=== PATIENT | male | born 1985 | race Caucasian/White ===

== ENCOUNTER 2020-09-22 19:29 | Emergency (ER) | payer BC, SELFPAY ==
--- NOTE | ~2020-09-22 | US_ITS ---
EXAMINATION: US SCROTUM CLINICAL INFORMATION: Right testicular pain. COMPARISON: None TECHNIQUE: A sonogram of the scrotum was performed assessing mcintyre-scale appearance and color Doppler flow. Spectral Doppler analysis of the arterial and venous flow were performed in the testes bilaterally. FINDINGS: RIGHT: Right testicle measures 4.5 x 2.2 x 2.9 cm, volume 15.0 mL. No focal testicular parenchymal lesions are visualized. Spectral Doppler analysis of the arterial and venous flow is normal in the right testis. Right epididymal head is normal in size. No right hydrocele or varicocele is seen. Right epididymal Doppler flow is slightly increased compared with the left, suggesting epididymitis. LEFT: Left testicle measures 4.0 x 2.0 x 3.4 cm, volume 14.6 mL. No focal testicular parenchymal lesions are visualized. Spectral Doppler analysis of the arterial and venous flow is normal in the left testis. Left epididymal head is normal in size. No left hydrocele or varicocele is seen. Left epididymal Doppler flow is normal. US/US scrotum IMPRESSION: Normal-appearing testes. Slight increase in vascularity of the right epididymis compared to the left suggesting the possibility of epididymitis.
[2020-09-22 19:49] VITALS: BP 154/84; PULSE 86; RESP 16; TEMP 36.6; O2SAT 99; BMI 27.3
--- NOTE | 2020-09-22 21:52 | ED.MALEGU ---
HPI - Male Genitourinary General Chief complaint: Urogenital-Male Stated complaint: TESTICLE SWELLING Time Seen by Provider: 09/22/20 21:52 Source: patient Mode of arrival: ambulatory Limitations: no limitations History of Present Illness HPI Narrative: Patient no significant past medical history complaining of pain in the right testicle since yesterday especially on standing with slight swelling no injuries no urinary symptoms no history of STDs in the past no high risk of STDs MD Complaint: testicle pain Onset (ago): day(s) (2) Related Data Previous Rx's Medication Instructions Recorded ciprofloxacin HCl [Cipro] 500 mg PO BID #20 tab 09/22/20 doxycycline hyclate 100 mg PO BID #20 cap 09/22/20 Allergies Allergy/AdvReac Type Severity Reaction Status Date / Time No Known Allergies Allergy Verified 09/22/20 19:51 Review of Systems Review of Systems: Constitutional : No Weight loss, No Fever, No Chills ENT/Mouth : No sore throat, No Rhinorrhea Eyes: No Eye Pain, No Swelling Cardiovascular : No Chest Pain, no palpitations Respiratory : No Cough, No Sputum, no shortness of breath Gastrointestinal : no Nausea, No Vomiting, No Diarrhea, No abdominal Pain, no black stools Genitourinary : No Dysuria, No Urinary Frequency Musculoskeletal : No joint pain, No Myalgias, No Joint Swelling Skin : No Skin Lesions, No rash Neuro : No Weakness, No Numbness, No Dizziness, No Headache Psych : No Anxiety/Panic, No Depression Heme/Lymph: No Bruising, No Lymphadenopathy Endocrine : No Polyuria, No Polydipsia All other systems reviewed and are negative PMFSH Past Medical History Medical History Patient denies significant medical history Social History Social History Smoked in Last 30 Days: No Use of substances other than those prescribed or required for medical reasons: No Substance Use Type: Marijuana Advance Directives: No Advance Directives Information Provided: Yes Physical Exam Vital Signs: Vital Signs: Last Vital Signs Temp 97.9 F 09/22/20 19:49 Pulse 86 09/22/20 19:49 Resp 16 09/22/20 19:49 BP 154/84 H 09/22/20 19:49 Pulse Ox 99 09/22/20 19:49 Body Mass Index 27.3 Const: General: comfortable and no acute distress HENMT: Head: Yes normocephalic and Yes atraumatic Eyes: General: appearance normal, both eyes and all related structures Resp: Effort & Inspection: normal respiratory effort Auscultation: clear to auscultation bilaterally Cardio: Rate: regular rate Rhythm: regular rhythm Heart sounds: S1 normal heart sound present and S2 normal heart sound present GI: Inspection: Yes normal to inspection Palpation (GI): Soft to palpation and nontender Auscultation: normal bowel sounds : General: Yes no CVA tenderness Male General Exam: Yes normal external exam Penis: normal penis Scrotum: scrotum normal, testes descended bilaterally, no hydroceles, no inguinal hernias and no masses Testes: epididymal tenderness on the right, no testicular mass, no testicular swelling, no testicular tenderness and normal testicular lie Back/Spine/Pelvis: Back: no CVA tenderness MDM - Male Genitourinary MDM Narrative Medical decision making narrative: Patient clinically with right epididymitis early stage ultrasound confirms that will treat him with doxycycline and Levaquin patient low risk for STDs urine is tested for STDs Discharge Plan Discharge Clinical Impression: Epididymitis Patient Disposition: Home, Self-Care Instructions: Epididymitis (ED) Additional Instructions: Care as Advised take antibiotics as prescribed Prescriptions: New doxycycline hyclate 100 mg capsule 100 mg PO BID Qty: 20 RF: 0 ciprofloxacin HCl [Cipro] 500 mg tablet 500 mg PO BID Qty: 20 RF: 0 Interventions: ED Discharge Assessment Last Done: 09/22/20 22:29 Discharge Date/Time: 09/22/20 22:33
[2020-09-22] MEDS: levoFLOXacin 500 MG TABLET PO (22:25)
[2020-09-23 08:55] LABS: CT PCR NOT DETECTED (Not Detect.); NG PCR NOT DETECTED (Not Detect.)
== END 2020-09-22 22:33 | disposition home or self-care (01) ==
LOC: HO.ED 21:58
PROVIDERS: Emergency Provider Internal Medicine
DX: N45.1 Epididymitis (principal); F12.90 Cannabis use, unspecified, uncomplicated
CPT/HCPCS: 76870; 87491; 87591; 99284

== ENCOUNTER 2020-10-07 08:20 | Emergency (ER) | payer BC, SELFPAY ==
--- NOTE | ~2020-10-07 | US_ITS ---
EXAMINATION: US SCROTUM CLINICAL INFORMATION: History of recent epididymitis. Persistent pain.. COMPARISON: Previous exam 09/22/2020 TECHNIQUE: A sonogram of the scrotum was performed assessing mcintyre-scale appearance and color Doppler flow. Spectral Doppler analysis of the arterial and venous flow were performed in the testes bilaterally. FINDINGS: RIGHT: Right testicle measures 4.2 x 2.3 x 2.9 cm, volume 15 mL. No focal testicular parenchymal lesions are visualized. Spectral Doppler analysis of the arterial and venous flow is documented in the right testis. Flow in the right testicle may be slightly increased. Right epididymal head is normal in size. No right varicocele is seen. Right epididymal Doppler flow is normal. There is a small hydrocele. There is a tunical calcifications likely representing a scrotal analy. LEFT: Left testicle measures 4 x 2.4 x 2.7 cm, volume 14 mL. No focal testicular parenchymal lesions are visualized. Spectral Doppler analysis of the arterial and venous flow is documented in the left testis. Flow in the left testicle may be slightly increased. Left epididymal head is normal in size. Is a small left epididymal head cyst measuring 3 x 3 x 2 mm. No left varicocele is seen. Left epididymal Doppler flow is normal. There is a small left tunical calcifications or scrotal pleural. There is a small left hydrocele. US/US scrotum IMPRESSION: Question slight increased flow to both testicles. No focal testicular lesion or abnormal echotexture is seen. Mild bilateral orchitis should be considered. Normal-appearing epididymides. Small bilateral hydroceles. Small left epididymal head cyst. Bilateral peripheral calcifications or scrotal pearls usually related to history of old trauma or infection.
--- NOTE | ~2020-10-07 | US_ITS ---
EXAMINATION: US SCROTUM CLINICAL INFORMATION: History of recent epididymitis. Persistent pain.. COMPARISON: Previous exam 09/22/2020 TECHNIQUE: A sonogram of the scrotum was performed assessing mcintyre-scale appearance and color Doppler flow. Spectral Doppler analysis of the arterial and venous flow were performed in the testes bilaterally. FINDINGS: RIGHT: Right testicle measures 4.2 x 2.3 x 2.9 cm, volume 15 mL. No focal testicular parenchymal lesions are visualized. Spectral Doppler analysis of the arterial and venous flow is documented in the right testis. Flow in the right testicle may be slightly increased. Right epididymal head is normal in size. No right varicocele is seen. Right epididymal Doppler flow is normal. There is a small hydrocele. There is a tunical calcifications likely representing a scrotal analy. LEFT: Left testicle measures 4 x 2.4 x 2.7 cm, volume 14 mL. No focal testicular parenchymal lesions are visualized. Spectral Doppler analysis of the arterial and venous flow is documented in the left testis. Flow in the left testicle may be slightly increased. Left epididymal head is normal in size. Is a small left epididymal head cyst measuring 3 x 3 x 2 mm. No left varicocele is seen. Left epididymal Doppler flow is normal. There is a small left tunical calcifications or scrotal pleural. There is a small left hydrocele. US/US scrotum doppler IMPRESSION: Question slight increased flow to both testicles. No focal testicular lesion or abnormal echotexture is seen. Mild bilateral orchitis should be considered. Normal-appearing epididymides. Small bilateral hydroceles. Small left epididymal head cyst. Bilateral peripheral calcifications or scrotal pearls usually related to history of old trauma or infection.
[2020-10-07 08:23] VITALS: BP 152/87; PULSE 98; RESP 18; TEMP 36.7; O2SAT 98; BMI 27.3
--- NOTE | 2020-10-07 09:03 | PC.NURSE ---
ultrasound completed at bedside. patient aware urine sample needed.
--- NOTE | 2020-10-07 09:06 | ED_ITS ---
HPI - Male Genitourinary General Chief complaint: Urogenital-Male Stated complaint: groin pain Time Seen by Provider: 10/07/20 08:28 Source: patient Mode of arrival: ambulatory Limitations: no limitations History of Present Illness HPI Narrative: 35 y/o male with history of recently diagnosed right epididymitis s/p treatment with Cipro & doxycycline x 10 days on 09/22 who presents with continued intermittent right testicular aching. He states it is worse later in the day. He works at a desk job. He states he currently has no pain but at times it is a 2 or 3 out of 10 and comes and goes. Described as an ache. No urinary symptoms. No concern for STD. He has been to his for 7 years, no new partners. Onset (ago): week(s) Duration: intermittent Location: right testicle Severity: mild Severity scale (1-10): 2 Quality: aching Relieving factors: none Exacerbating factors: none Associated symptoms: Reports denies other symptoms Related Data Sexually active: Yes Previous Rx's Medication Instructions Recorded ciprofloxacin HCl [Cipro] 500 mg PO BID #20 tab 09/22/20 doxycycline hyclate 100 mg PO BID #20 cap 09/22/20 ciprofloxacin HCl 500 mg PO BID #30 tab 10/07/20 ibuprofen 600 mg PO Q8H PRN #15 tab 10/07/20 Allergies Allergy/AdvReac Type Severity Reaction Status Date / Time No Known Allergies Allergy Verified 09/22/20 19:51 Review of Systems Review of Systems: Constitutional: No Fever, No Chills Gastrointestinal: No Nausea, No Vomiting, No Diarrhea, No abdominal Pain Genitourinary: No Dysuria, No Urinary Frequency, No Hematuria, +testicular pain Musculoskeletal: No joint pain, No Myalgias Skin: No Skin Lesions, No rash Psych: + Anxiety/Panic Heme/Lymph: No Bruising, No Lymphadenopathy Endocrine: No Polyuria, No Polydipsia PMFSH Past Medical History Attestation statement: The following information was validated with the patient. Medical History Patient denies significant medical history Social History Social History Substance Use Type: Marijuana Advance Directives: No Advance Directives Information Provided: No Physical Exam Vital Signs: Vital Signs: Last Vital Signs Temp 98.1 F 10/07/20 08:23 Pulse 98 10/07/20 08:23 Resp 18 10/07/20 08:23 BP 152/87 H 10/07/20 08:23 Pulse Ox 98 10/07/20 08:23 Body Mass Index 27.3 Appearance: Alert. Oriented X3. No acute distress. Eyes: Pupils equal, round and reactive to light. ENT: Pharynx normal. Neck: Normal inspection. Neck supple. CVS: Normal heart rate and rhythm. Pulses normal. Respiratory: No respiratory distress. Breath sounds normal. Abdomen: Soft and nontender. +BS x4 : normal external genitalia, normal descended testes, no palpable mass, no tenderness. Skin: Skin warm and dry. Normal skin color. Normal skin turgor. No rashes. Extremities: No lower extremity edema. Neuro: Oriented X 3. No motor deficit. No sensory deficit. Course Course Course Narrative: 35 y/o male with recent epididymitis presenting with ongoing, intermittent mild testicular aching. None at present. Will get follow up ultrasound and UA for further assessment. Recent CT/NG negative. No need to repeat at this time. Reevaluation(s) Reevaluation #1: Repeat U/S is showing slight increased flow to both testicles, mild bilateral orchitis should be considered. Normal epididymides. Small bilateral hydroceles. UA is negative for infection. Case d/w Dr. Boston - recommending treatment with Ciprofloxicin for longer duration and referral to Urology. Will give 2 weeks of Cipro. Patient agreeable with plan. MDM - Male Genitourinary Differential Diagnosis Differential diagnosis: Likely urinary tract infection, urethritis, epidi dymitis, prostatitis and inguinal hernia Medical Records Attestation: I reviewed the patient's medical records. Lab Data Attestation: I reviewed the patient's lab results. Labs: Lab Results 10/07/20 Range/Units 09:43 Urine Color YELLOW Urine Appearance CLEAR Urine pH 7.5 (5.0-8.0) Ur Specific [place] 1.025 (1.005-1.025) Urine Protein NEG (NEG-TRACE) MG/DL Urine Glucose (UA) NEG (NEG) MG/DL Urine Ketones NEG (NEG) MG/DL Urine Blood NEG (NEG) Urine Nitrite NEG (NEG) Ur Leukocyte Esterase NEG (NEG) Critical Care Time Critical Care Time Critical Care Time: No Discharge Plan Discharge Clinical Impression: Orchitis Patient Disposition: Home, Self-Care Instructions: Orchitis (ED) Additional Instructions: Your ultrasound showed possible mild increased blood flow and inflammation of your testicles. Take the prescribed antibiotic for 2 weeks. Follow up with Urology in 1 week. Take Motrin as needed for pain. Come back to the ER if pain worsens or if you develop new or concerning symptoms. Prescriptions: New ciprofloxacin HCl 500 mg tablet 500 mg PO BID Qty: 30 RF: 0 ibuprofen 600 mg tablet 600 mg PO Q8H PRN (Reason: pain) Qty: 15 RF: 0 No Action doxycycline hyclate 100 mg capsule 100 mg PO BID Qty: 20 RF: 0 ciprofloxacin HCl [Cipro] 500 mg tablet 500 mg PO BID Qty: 20 RF: 0 Referrals: Kenan Vail MD [Physician] - 2 days (orchitis, epididymitis) Stand Alone Forms: Work/School Release
[2020-10-07 09:54] LABS: Glucose Urine UA NEG (NEG); Leukocyte Esterase Urine NEG (NEG); Nitrite Urine NEG (NEG); PH 7.5 (5.0-8.0); Specific Gravity - Urine 1.025 (1.005-1.025); Urine Blood NEG (NEG); Urine Ketones NEG (NEG); Urine Protein NEG (NEG-TRACE)
[2020-10-07 10:04] LABS: Appearance Urine CLEAR; Color Urine YELLOW
== END 2020-10-07 10:23 | disposition home or self-care (01) ==
PROVIDERS: Physician Assistant; Emergency Provider Emergency Medicine
DX: N45.2 Orchitis (principal); N50.811 Right testicular pain; F12.90 Cannabis use, unspecified, uncomplicated
CPT/HCPCS: 76870; 81003; 93975; 99283; 99284

== ENCOUNTER → 2021-03-03 14:35 | Outpatient (BNVA) | payer BC, SELFPAY | PROVIDERS: PCP Registered Nurse; Visit Provider Urology ==

== ENCOUNTER 2022-02-14 06:11 | Emergency (ER) | payer BC, SELFPAY ==
--- NOTE | ~2022-02-14 | XR_ITS ---
EXAMINATION: XR ABDOMEN KUB CLINICAL INDICATION: Rule out obstruction. COMPARISON: None TECHNIQUE: AP view of the abdomen. FINDINGS: The bowel gas pattern is normal with no evidence of ileus or obstruction. No unusual soft tissue calcifications are noted. The bones are unremarkable. XR/XR abdomen 1V IMPRESSION: Nonobstructive bowel gas pattern.
[2022-02-14 06:42] VITALS: BP 171/103; PULSE 95; RESP 20; TEMP 36.8; O2SAT 97; BMI 28.1
--- NOTE | 2022-02-14 08:15 | ED.GENADULT ---
HPI - General Adult General Chief complaint: General Medical Stated complaint: constipation Time Seen by Provider: 02/14/22 07:58 Source: patient Mode of arrival: ambulatory Limitations: no limitations History of Present Illness HPI narrative: 36-year-old male presents to the ER for evaluation of constipation for the last 6 days. He reports last Monday he had entire night of vomiting. He was only passing small amounts of stool. The vomiting subsided by Monday morning but he still felt some discomfort in his abdomen. He denies any distinct abdominal pain, but reports some bloating. He has been passing small amounts of stool since then, he is passing flatus. No further vomiting. He woke up at 03:00 today very nauseous and in a cold sweat. He did have a bowel movement early this morning. He is worried about a possible obstruction. He denies any abdominal surgeries. No fever or chills. No blood in his stool. He has been taking MiraLax, last took it 2 days ago. MD complaint: Constipation Onset (ago): day(s) (6) Location: abdomen Radiation: non-radiation Severity: mild Severity scale (1-10): 2 Quality: dull Pain Consistency: intermittent Relieving factors: other (BM) Exacerbating factors: none Associated symptoms: denies other symptoms Treatments prior to arrival: none Related Data Previous Rx's Medication Instructions Recorded ciprofloxacin HCl 500 mg tablet 500 mg PO BID #20 tabs 09/22/20 (Cipro) doxycycline hyclate 100 mg capsule 100 mg PO BID #20 caps 09/22/20 ciprofloxacin HCl 500 mg tablet 500 mg PO BID #30 tabs 10/07/20 ibuprofen 600 mg tablet 600 mg PO Q8H PRN pain #15 tabs 10/07/20 Allergies Allergy/AdvReac Type Severity Reaction Status Date / Time No Known Allergies Allergy Verified 03/03/21 14:55 Review of Systems Review of Systems: Constitutional: No Fever, No Chills ENT/Mouth: No sore throat, No Rhinorrhea, No Swallowing Difficulty Cardiovascular: No Chest Pain, No SOB Respiratory: No Cough, No Sputum, No Wheezing, No dyspnea Gastrointestinal: + Nausea, No Vomiting, No Diarrhea, No abdominal Pain, No Hematochezia, No Melena, +Constipation Genitourinary: No Dysuria, No Urinary Frequency, No Hematuria Musculoskeletal: No joint pain, No Myalgias Skin: No Skin Lesions, No rash Neuro: No Weakness, No Numbness, No Dizziness, No Headache Psych: +Anxiety/Panic, No Depression Heme/Lymph: No Bruising, No Lymphadenopathy Endocrine: No Polyuria, No Polydipsia PMFSH Past Medical History Medical History Patient denies significant medical history Social History Social History Substance Use Type: Marijuana Advance Directives: No Advance Directives Information Provided: No Physical Exam ED Vital Signs: Vital Signs - 24 hr 02/14/22 06:42 Temperature 98.2 F Pulse Rate 95 Respiratory Rate 20 Blood Pressure 171/103 H Pulse Oximetry 97 Oxygen Delivery Method Room Air BMI result Body Mass Index 28.1 Appearance: Alert. Oriented X3. No acute distress. Eyes: Pupils equal, round and reactive to light. ENT: Pharynx normal. Neck: Normal inspection. Neck supple. CVS: Normal heart rate and rhythm. Pulses normal. Respiratory: No respiratory distress. Breath sounds normal. Abdomen: Soft and nontender. +BS x4 JOSE JUAN: normal inspection, normal rectal tone, no stool in rectal vault Skin: Skin warm and dry. Normal skin color. Normal skin turgor. No rashes. Extremities: No lower extremity edema. Neuro: Oriented X 3. No motor deficit. No sensory deficit. Course Course Course Narrative: 36-year-old male presents to the ER for evaluation of constipation. He is passing flatus and stool. He was nauseous and vomiting last week but no further vomiting. No history of abdominal surgeries. Doubt obstruction. Will get KUB to r/o obstructive bowel pattern. Will give enema and miralax. Reevaluation(s) Reevaluation #1: KUB showing no obstruction. Good effect w/ enema. Stable for d/c home with bowel reg and outpatient follow up. Return precautions discussed. Discharge Plan Discharge Clinical Impression: Constipation Patient Disposition: Home, Self-Care Instructions: Constipation (ED), High Fiber Diet (ED) Additional Instructions: Your abdominal x-ray today did not show any evidence of obstruction. Recommend taking MiraLax once per day. Also recommend [id number] Dulcolax. If you can find magnesium citrate at your local pharmacy, recommend drinking this. This is a more aggressive laxative. Stay home after you drink it. If you develop new or worsening symptoms call 911 or come back to the ER for further evaluation. Prescriptions: No Action doxycycline hyclate 100 mg capsule 100 mg PO BID Qty: 20 0RF ciprofloxacin HCl [Cipro] 500 mg tablet 500 mg PO BID Qty: 20 0RF ciprofloxacin HCl 500 mg tablet 500 mg PO BID Qty: 30 0RF ibuprofen 600 mg tablet 600 mg PO Q8H PRN (Reason: pain) Qty: 15 0RF
[2022-02-14] MEDS: polyethylene glycoL 3350 17 GM POWD.PACK PO (08:21)
[2022-02-14] MEDS: Sodium Phosphate,Mono-Dibasic 133 ML ENEMA PR (08:21)
== END 2022-02-14 09:13 | disposition home or self-care (01) ==
PROVIDERS: Emergency Provider Emergency Medicine
DX: K59.00 Constipation, unspecified (principal); Z79.899 Other long term (current) drug therapy
CPT/HCPCS: 74018; 99284

== ENCOUNTER → 2022-05-26 14:36 | Outpatient (BNVA) | payer BC, SELFPAY | PROVIDERS: PCP Registered Nurse Community Health; Visit Provider Urology | DX: Z30.2 Encounter for sterilization (principal); F41.8 Other specified anxiety disorders | CPT/HCPCS: 55250 ==

== ENCOUNTER 2022-07-28 05:29 | Emergency (ER) | payer BC, SELFPAY ==
--- NOTE | 2022-07-28 | ECG_ITS ---
Test Reason : chest pain Blood Pressure : / mmHG Vent. Rate : 099 BPM Atrial Rate : 099 BPM P-R Int : 142 ms QRS Dur : 078 ms QT Int : 324 ms P-R-T Axes : 068 045 056 degrees QTc Int : 415 ms Normal sinus rhythm Normal ECG No previous ECGs available Referred By: Generic ED Physician Electronically Signed By:Sree Valdez
[2022-07-28 05:32] VITALS: BP 145/92; PULSE 108; RESP 20; TEMP 36.6; O2SAT 100; BMI 28.1
[2022-07-28 07:10] VITALS: BP 131/88; PULSE 73; RESP 16; O2SAT 97
--- NOTE | 2022-07-28 07:49 | ED.ANXIETY ---
HPI - Anxiety General Chief Complaint: Anxiety Stated Complaint: Elevated heart rate Time Seen by Provider: 07/28/22 07:17 Source: patient Mode of arrival: ambulatory History of Present Illness HPI narrative: 37-year-old male without significant past medical history and denies any family cardiac history but does state he has anxiety. Patient states that he woke up at approximately 04:30 this morning to go to the bathroom and felt like he was having some left arm pain located over the lateral aspect/deltoid area and then states that his finger tips became tingly and then his ?heart rate shot up?. Patient states that he felt like his heart was racing and did not actually know what the rate was. Patient states that he feels better now and that is arm has significantly improved but he still has some residual pain over the deltoid area. Related Data Previous Rx's Medication Instructions Recorded ciprofloxacin HCl 500 mg tablet 500 mg PO BID #20 tabs 09/22/20 (Cipro) doxycycline hyclate 100 mg capsule 100 mg PO BID #20 caps 09/22/20 ciprofloxacin HCl 500 mg tablet 500 mg PO BID #30 tabs 10/07/20 ibuprofen 600 mg tablet 600 mg PO Q8H PRN pain #15 tabs 10/07/20 acetaminophen 300 mg-codeine 30 mg 1 tab PO Q8H #7 tabs 03/08/22 tablet diazepam 2 mg tablet 2 mg PO BID PRN anxiety 7 days #2 03/08/22 tabs Allergies Allergy/AdvReac Type Severity Reaction Status Date / Time No Known Allergies Allergy Verified 03/07/22 15:59 Review of Systems Review of Systems: Pertinent positives and negatives as stated in HPI. COUNTS INCLUDE 234 BEDS AT THE [facility] Past Medical History Source: nursing notes reviewed Medical History Patient denies significant medical history Social History Social History Substance Use Type: Marijuana Advance Directives: No Physical Exam Vital Signs: Vital Signs: Last Vital Signs Temp 97.9 F 07/28/22 05:32 Pulse 73 07/28/22 07:10 Resp 16 07/28/22 07:10 BP 131/88 07/28/22 07:10 Pulse Ox 97 07/28/22 07:10 O2 Del Method 07/28/22 07:10 BMI result Body Mass Index 28.1 VITAL SIGNS: Reviewed. GENERAL: Well developed, well nourished, in no acute distress. HEAD: Normocephalic/atraumatic EYES: PERRLA, EOMI EARS: Ext canals without abnormality, TMs non-bulging and non-erythematous NOSE: Nares patent bilateral OROPHARYNX: no oral lesions noted, posterior pharynx clear and non-erythematous without noted tonsillar enlargement/erythema/exudates NECK: Supple, no adenopathy LUNGS: Normal breath sounds. No adventitious sounds or accessory muscle use. SpO2<97> CARDIOVASCULAR: Regular rate and rhythm without noted murmurs. ABDOMEN: Soft, non-tender, non-distended with bowel sounds. MUSCULOSKELETAL: No tenderness, deformities, or effusions noted on gross inspection. EXTREMITIES: No cyanosis, clubbing or edema; LEFT UPPER EXTREMITY: Patient is left-hand dominant, there is full range of motion noted at the shoulder, elbow, there is mild tenderness to palpation over the insertion on left lateral humerus, neurovascular is intact distal SKIN: Inspection of the skin reveals no rashes NEUROLOGIC: Alert and oriented x 4. Strength and sensation to light touch were grossly intact x 4. Medical Decision Making Medical Decision Making [facility] Narrative: 37-year-old male that appears to have had an anxiety reaction, and suspect that the symptoms patient is experiencing is some mild overuse or nerve position symptoms. EKG is without acute findings and there is no history or presentation or family history to suggest any pneumonia, cardiopulmonary etiologies and patient is PERC negative. He is feeling much better now and will be discharged home in stable condition but encouraged to follow-up if anything should change. Differential Diagnosis Differential Diagnoses: The differential diagnosis associated with the presentation includes Please see the discussion above Lab Data [facility] Lab Attestation statement: I reviewed the patient's lab results. Please see the discussion above Independent Interpretation I performed an independent interpretation of an: EKG Interpretation: Normal sinus rhythm, HR-99, no STEMI, no shortened HI/QT/prolonged QT and otherwise HI/QRS/QTC is within normal limits. Discharge Plan Discharge Clinical Impression: Anxiety about health Patient Disposition: Home, Self-Care Instructions: Anxiety (ED) Additional Instructions: 1. Resume all home medications as prescribed. 2. Please follow-up with your primary care provider in next 2-3 days for re-evaluation further outpatient management. Do not hesitate to return to the emergency room should you experience any worsening of your symptoms. Prescriptions: No Action doxycycline hyclate 100 mg capsule 100 mg PO BID Qty: 20 0RF ciprofloxacin HCl [Cipro] 500 mg tablet 500 mg PO BID Qty: 20 0RF ciprofloxacin HCl 500 mg tablet 500 mg PO BID Qty: 30 0RF ibuprofen 600 mg tablet 600 mg PO Q8H PRN (Reason: pain) Qty: 15 0RF acetaminophen-codeine 300-30 mg tablet 1 tab PO Q8H Qty: 7 0RF diazepam 2 mg tablet 2 mg PO BID PRN (Reason: anxiety) 7 Days Qty: 2 0RF Rx Instructions: Take medication after arrival at office Referrals: [facility] [Primary Care Provider] -
== END 2022-07-28 08:34 | disposition home or self-care (01) ==
PROVIDERS: Emergency Provider Student in an Organized Health Care Education/Training Program
DX: F41.8 Other specified anxiety disorders (principal); F12.90 Cannabis use, unspecified, uncomplicated; Z79.899 Other long term (current) drug therapy
CPT/HCPCS: 93005; 99283; 99284

== ENCOUNTER → 2022-08-30 13:11 | Outpatient (BNVA) | payer BC, SELFPAY | PROVIDERS: PCP Registered Nurse; Visit Provider Urology | DX: Z13.89 Encounter for screening for other disorder (principal) ==